=== PATIENT | female | born 1985 | race Caucasian/White ===

== ENCOUNTER 2019-10-09 17:20 | Day surgery (SDC) | payer OTHER ==
[2019-10-09] MEDS ORDERED: Midazolam 1 MG/ML 2 ML SDV ONE (18:03)
[2019-10-09] MEDS ORDERED: Propofol 200 MG/20 ML SDV ONE (18:03)
[2019-10-09] MEDS ORDERED: Bupivacaine 0.25% 10 ML SDV ONE (18:03)
[2019-10-09] MEDS ORDERED: Ondansetron 4 MG/2 ML SDV ONE (18:03)
[2019-10-09] MEDS ORDERED: fentaNYL 100 MCG/2 ML SDV ONE ×2 (18:03→18:08)
[2019-10-09] MEDS ORDERED: Rocuronium 100 MG/10 ML Syringe ONE ×2 (18:04→19:38)
[2019-10-09] MEDS ORDERED: Glycopyrrolate 0.2 MG/ML SDV ONE (18:04)
[2019-10-09] MEDS ORDERED: Lidocaine 2% 5 ML SDV ONE (18:04)
[2019-10-09] MEDS ORDERED: Morphine 10 MG/ML Syringe ONE (18:09)
[2019-10-09] MEDS ORDERED: Sugammadex Sodium 200 MG/2 ML VIAL ONE (18:11)
[2019-10-09] MEDS ORDERED: Vasopressin 20 Units/1 ML MDV ONE (18:13)
--- NOTE | 2019-10-09 19:05 | PCM.PREANE ---
Preanesthetic Assessment - Procedure Proposed Procedure: Daig Lap - Anesthesia/Transfusion/Family Hx Anesthesia History: Prior Anesthesia Without Reaction Family History of Anesthesia Reaction: No Transfusion History: No Prior Transfusion(s) Intubation History: Unknown - Review of Systems General: No Symptoms Pulmonary: No Symptoms Cardiovascular: No Symptoms Gastrointestinal: No Symptoms Neurological: No Symptoms (Icreased BMI) Other: Reports: None - Physical Assessment NPO Status Date: 10/09/19 NPO Status Time: 13:30 Vital Signs: Last Vital Signs Temp 37.0 C 10/09/19 17:30 Pulse 94 10/09/19 17:30 Resp 14 10/09/19 17:30 BP 130/78 10/09/19 17:30 Pulse Ox 98 10/09/19 17:30 Height: 1.7 m Weight: 81.964 kg ASA Class: 2E Mental Status: Alert & Oriented x3 Airway Class: Mallampati = 2 Dentition: Reports: Normal Dentition Thyro-Mental Finger Breadths: 3 Mouth Opening Finger Breadths: 3 ROM/Head Extension: Full Lungs: Clear to Auscultation Cardiovascular: Regular Rate Other: Increased BMI - Allergies Allergies/Adverse Reactions: Allergies Allergy/AdvReac Type Severity Reaction Status Date / Time Sulfa (Sulfonamide Allergy Severe Anaphylactic Verified 10/09/19 17:31 Antibiotics) Shock - Blood Blood Available: No Product(s) Available: None - Anesthesia Plan Pre-Op Medication Ordered: None - Acknowledgements Anesthesia Type Planned: General Anesthesia Pt an Appropriate Candidate for the Planned Anesthesia: Yes Alternatives and Risks of Anesthesia Discussed w Pt/Guardian: Yes Pt/Guardian Understands and Agrees with Anesthesia Plan: Yes Additional Comments: Discussed. ? answered. Wishes to proceed. Permit signed. PreAnesthesia Questionnaire [employer] History: Reports: - Past Surgical History GI Surgical History: Reports: Appendectomy Other Musculoskeletal Surgeries/Procedures:: Broke left wrist, had surgery - SUBSTANCE USE Smoking Status *Q: Never Smoker Recreational Drug Use History: No - HOME MEDS Home Medications: Home Meds Acetaminophen [Tylenol] 325 mg PO Q4H PRN 10/09/19 [History] [id number]/Iron/FA/O3/Dha/Epa/Fish [ Multi-Dha Softgel] 1 cap PO DAILY 10/08 [History] - CURRENT (IN HOUSE) MEDS Current Meds: Current Medications Discontinued Medications Bupivacaine HCl (Sensorcaine-Mpf 0.25%) Confirm Administered Dose 20 ml .ROUTE .STK-MED ONE Stop: 10/09/19 18:04 Fentanyl (Sublimaze) Confirm Administered Dose 100 mcg .ROUTE .STK-MED ONE Stop: 10/09/19 18:04 Fentanyl (Sublimaze) Confirm Administered Dose 100 mcg .ROUTE .STK-MED ONE Stop: 10/09/19 18:09 Glycopyrrolate (Robinul) Confirm Administered Dose 0.2 mg .ROUTE .STK-MED ONE Stop: 10/09/19 18:05 Acetaminophen (Ofirmev) Confirm Administered Dose 100 mls @ as directed .ROUTE .STK-MED ONE Stop: 10/09/19 18:12 Lidocaine (Xylocaine-Mpf 2%) Confirm Administered Dose 5 ml .ROUTE .STK-MED ONE Stop: 10/09/19 18:05 Midazolam HCl (Versed 1 Mg/Ml) Confirm Administered Dose 2 mg .ROUTE .STK-MED ONE Stop: 10/09/19 18:04 Morphine Sulfate (Morphine) Confirm Administered Dose 10 mg .ROUTE .STK-MED ONE Stop: 10/09/19 18:10 Ondansetron HCl (Zofran) Confirm Administered Dose 4 mg .ROUTE .STK-MED ONE Stop: 10/09/19 18:04 Propofol (Diprivan 20 Ml) Confirm Administered Dose 400 mg .ROUTE .STK-MED ONE Stop: 10/09/19 18:04 Rocuronium [place] (Zemuron) Confirm Administered Dose 100 mg .ROUTE .STK-MED ONE Stop: 10/09/19 18:05 Sugammadex Sodium (Bridion) Confirm Administered Dose 200 mg .ROUTE .STK-MED ONE Stop: 10/09/19 18:12 Vasopressin (Vasopressin) Confirm Administered Dose 20 units .ROUTE .STK-MED ONE Stop: 10/09/19 18:14
[2019-10-09] MEDS ORDERED: Octyl 2-Cyanoacrylate 1 Tube ONE (19:45)
[2019-10-09] MEDS ORDERED: Ketorolac 30 MG/ML SDV ONE (20:05)
[2019-10-09] MEDS ORDERED: Meperidine PF 25 MG/ML Syringe ONE (20:05)
[2019-10-09] MEDS ORDERED: Meperidine PF 25 MG/ML Syringe IVPUSH ONE (20:08)
[2019-10-09] MEDS ORDERED: Acetaminophen/HYDROcodone 325-5 MG Tab PO PRN (20:19)
[2019-10-09] MEDS ORDERED: Ketorolac 15 MG/ML SDV IVPUSH ONE (20:19)
[2019-10-09] MEDS ORDERED: Sodium Chloride 0.9% 10 ML SDV IV PRN (20:25)
[2019-10-09] MEDS ORDERED: Sodium Chloride 0.9% 2.5 ML Syringe FLUSH PRN (20:25)
[2019-10-09] MEDS ORDERED: Sodium Chloride 0.9% 10 ML Syringe FLUSH PRN (20:25)
[2019-10-09] MEDS ORDERED: Morphine 4 MG/ML Syringe IVPUSH ONE (20:32)
[2019-10-09 20:43] LABS: BLOOD UREA NITROGEN,BUN 10 mg/dL (7.0-18.0); CARBON DIOXIDE,CO2 25.6 mmol/L (21.0-32.0); CHLORIDE,CL 105 mmol/L (98-107); GLUCOSE RANDOM 95 mg/dL (74-106); POTASSIUM,K 4.2 mmol/L (3.5-5.1); SODIUM,NA 139 mmol/L (136-145)
--- NOTE | 2019-10-09 20:45 | PCM.POSTAN ---
POST ANESTHESIA ASSESSMENT - MENTAL STATUS Mental Status: Alert - VITAL SIGNS Vital Signs: Last Vital Signs Temp 37.2 C 10/09/19 20:02 Pulse 84 10/09/19 20:42 Resp 12 10/09/19 20:42 BP 106/69 10/09/19 20:42 Pulse Ox 100 10/09/19 20:42 - RESPIRATORY Respiratory Status: Respiratory Rate WNL - CARDIOVASCULAR CV Status: Pulse Rate WNL - GASTROINTESTINAL GI Status: No Symptoms - PAIN Pain Score: 2 (Sore/crampy) - POST OP HYDRATION Hydration Status: Adequate & Stable - OBSERVATIONS Free Text/Narrative:: Doing well. Ready for transfer to floor.
--- NOTE | 2019-10-09 21:27 | PCM48HPAN ---
Post Anesthesia Note - EVALUATION WITHIN 48HRS OF ANESTHETIC Vital Signs in Normal Range: Yes Patient Participated in Evaluation: Yes Respiratory Function Stable: Yes Airway Patent: Yes Cardiovascular Function Stable: Yes Hydration Status Stable: Yes Pain Control Satisfactory: Yes Nausea and Vomiting Control Satisfactory: Yes Mental Status Recovered: Yes Vital Signs: Last Vital Signs Temp 36.2 C 10/09/19 21:00 Pulse 105 H 10/09/19 21:15 Resp 15 10/09/19 21:15 BP 119/66 10/09/19 21:15 Pulse Ox 96 10/09/19 21:15 - COMMENTS/OBSERVATIONS Free Text/Narrative:: Doing well. Ready for discharge when ride arrives.
--- NOTE | 2019-10-09 23:17 | OR ---
SURGEON: Alf aMlcolm MD DATE OF PROCEDURE: 10/09/2019 INDICATION FOR PROCEDURE: A 33-year-old G3, P1-0-1-1 at 5 weeks by LMP, presenting with right ectopic . The patient noted vaginal bleeding at home and presented for evaluation. On pelvic ultrasound, there was no IUP noted, but there was a 5- week ectopic with pole and heart rate in the right adnexa. Discussed options for management with the patient including methotrexate and surgical management with salpingectomy or salpingostomy. The patient desires to have surgical management, however, would like to preserve her fallopian tubes for fertility. Procedure was discussed with the patient. Questions were answered and consent was signed. PREOPERATIVE DIAGNOSIS: Right ectopic . POSTOPERATIVE DIAGNOSIS: Right ectopic . PROCEDURE PERFORMED: Diagnostic laparoscopy, right partial salpingectomy. ANESTHESIOLOGIST: Dr. Meredith Navarro. ANESTHESIA: General anesthesia. ESTIMATED BLOOD LOSS: 50 mL. FINDINGS: Uterus was normal sized with normal-appearing left fallopian tube. The ovaries were normal appearing bilaterally. The right fallopian tube contained an ectopic near the fimbria that was intact. A small amount of blood was noted in the cul-de-sac. There were diffuse filmy adhesions anterior to the uterus, along the fallopian tubes and ovaries to the surrounding bowel, sidewall, and the uterus. DESCRIPTION OF THE PROCEDURE: The risks of procedure were discussed with the patient including bleeding, infection, DVT, injury to surrounding organs such as bowel, bladder, and ureters. All questions were answered and consent was signed. The patient was brought to the operating room. Preop antibiotics were not indicated. She underwent general anesthesia with no complications. Her legs were then placed in dorsal lithotomy position and legs supported using stirrups, careful to relieve all pressure points. She was prepped and draped in the usual fashion with chlorhexidine and Betadine. Straight cath was performed to empty the bladder. The bimanual exam revealed uterus to be approximately 6 weeks' size, anteverted, and mobile. Some fullness was felt in the right adnexa. A speculum was placed in the vagina and anterior lip of the cervix was visualized and grasped with an Allis clamp. The cervix was serially dilated with Hegar dilators. HUMI uterine manipulator was placed in the uterine cavity. Attention was then turned to the abdomen. A 5 mm incision was made in the umbilical fold after injection of 0.25% Marcaine. Abdomen was tented up and Veress needle was used for entry. Intraperitoneal location was confirmed in the usual fashion and with saline drop test. CO2 was initiated with low opening pressure. Pneumoperitoneum was established to 15 mmHg. Survey of the abdomen did not notice any visceral or vascular injury with entry. Uterus was noted to be normal sized. There was a small amount of blood in the pelvis. There were filmy adhesions in the pelvis anterior to the uterus, and along the fallopian tubes and ovary to the surrounding bowel and sidewall. The fimbria of the right fallopian tube was noted to be dilated from the ectopic , which was not ruptured. The tube itself was otherwise normal appearing. The left fallopian tube was also normal appearing with bilateral ovaries. A 12 mm trocar was then placed in the left lower quadrant under laparoscopic visualization followed by another 5 mm trocar in the right lower quadrant. The right fallopian tube was grasped and elevated at the fimbriated end. 10cc of 0.3 unit/ml of dilute vasopressin was injected with a 22-gauge needle along the site of the ectopic with good dissection. Scissors were then used to make a vertical incision along the ectopic. Grasper was used to try to separate the ectopic from the fallopian tube. However, It was not able to be easily from the underlying fallopian tube. Decision was then made to perform a partial salpingectomy instead. Geo Harmonic device was used to transect under the portion of the ectopic along the mesosalpinx that involved approximately 1 cm of the fallopian tube. The specimen was then removed from the 12 mm port. Excellent hemostasis was noted at the incision site. Suction quartz miner was used to irrigate the pelvis and the fallopian tube, and all remaining clots were removed. Hemostasis was again confirmed. The fascia closure device was used to close the 12 mm port. Pneumoperitoneum was relieved, and all instruments were removed. The skin incision was closed with 3-0 Monocryl in a subcuticular fashion. Dermabond was applied over the incision. The uterine manipulator was removed. Sponge, lap, and instrument counts were correct. The patient was awakened from anesthesia in stable condition. She was taken to the recovery room and given postop care instructions. WILFREDO WALTON /[id number] JE
== END 2019-10-10 00:38 | disposition home or self-care (01) ==
LOC: MW.SDS 17:20 → MW.MS 17:23 → MW.SDS 10-10 00:38
PROVIDERS: ATTEND Obstetrics & Gynecology
DX: O00.101 Right tubal pregnancy without intrauterine pregnancy (principal); Z88.2 Allergy status to sulfonamides
CPT/HCPCS: 36415; 59151; 80048; 82962; 84702; 85027; 86850; 86900; 86901; A9270; J0131; J1885; J2001; J2175; J2250; J2270; J2405; J2704; J3010; J3490; 00840; 88305